=== PATIENT | male | born 1960 | race Caucasian/White ===

== ENCOUNTER 2024-10-23 14:26 | Emergency (ER) | payer MEDICARE, OTHER ==
[2024-10-23] MEDS: Lidocaine 1% 5 ML VIAL INJECT ONE (14:45)
[2024-10-23 15:10] VITALS: BP 137/75; PULSE 84
== END 2024-10-23 15:18 | disposition home or self-care (01) ==
LOC: LB.ED 14:26
DX: L02.512 Cutaneous abscess of left hand (principal); Z79.899 Other long term (current) drug therapy
CPT/HCPCS: 10060; 99283; 99283-25